=== PATIENT | male | born 1960 | race Two or more races ===

== ENCOUNTER 2019-06-21 11:07 | Emergency (ER) | payer MEDICAID ==
[~2019-06-21] VITALS: Ht 165.1 cm; Wt 107.5 kg
[2019-06-21 11:14] VITALS: Ht 165.1 cm; Wt 107.5 kg
[2019-06-21 12:40] LABS: BASOPHIL % 0.5 % (0-2); PLATELET COUNT 365 x10^3mcL (130-400); RED CELL DISTRIBUTION WIDTH 13.3 % (11.5-14.5)
[2019-06-21 12:49] LABS: CALCIUM 8.9 mg/dL (8.5-10.1); CARBON DIOXIDE 29.5 mmol/L (21-32); CHLORIDE SERUM 102 mmol/L (98-107); CREATININE SERUM 1.1 mg/dL (0.7-1.3); GFR1 > 60 mL/min; GLUCOSE SERUM 109 mg/dL (74-106); POTASSIUM SERUM 3.9 mmol/L (3.5-5.1); SODIUM SERUM 138 mmol/L (136-145)
[2019-06-21 12:55] LABS: ALBUMIN 3.9 g/dL (3.4-5.0); ALKALINE PHOSPHATASE 83 U/L (46-116); ALT/SGPT 44 U/L (16-63); AST/SGOT 22 U/L (15-37); TOTAL PROTEIN, SERUM 8.2 g/dL (6.4-8.2)
[2019-06-21 13:06] LABS: microscopic required? NO
[2019-06-21 13:10] LABS: urine erythrocyte NEGATIVE (NEGATIVE)
[2019-06-21 13:29] LABS: BILIRUBIN TOTAL 0.21 mg/dL (0.20-1.00)
[2019-06-21 14:35] VITALS: BP 125/65
== END 2019-06-21 14:35 | disposition home or self-care (01) ==
LOC: ED 11:07
PROVIDERS: Emergency Medicine
DX: I83.93 Asymptomatic varicose veins of bilateral lower extremities (principal); L29.9 Pruritus, unspecified; E78.00 Pure hypercholesterolemia, unspecified; E66.9 Obesity, unspecified; Z90.49 Acquired absence of other specified parts of digestive tract
CPT/HCPCS: 36415; 83880